=== PATIENT | female | born 1950 | race Caucasian/White ===

== ENCOUNTER 2016-10-21 10:42 | Observation (INO) | payer OTHER ==
[~2016-10-21] VITALS: Ht 162.6 cm; Wt 116.0 kg
[~2016-10-21 10:42] MED LIST: ALPHAGAN P100 DROP/5 BOTH EYES; CIPRO500 MG PO; EXFORGE 5/161 TABLET PO; FLEXERIL10 MG PO; HYDROCHLOROTH12.5 M3 PO; LANTUS 10100 UNITS/ SC; LIPITOR40 MG PO; LO-DOSE ASPIRIN81 M1 PO; METFORMIN HCL500 MG PO; METOPROLOL TART25 MG PO; NOVOLIN N100 UNITS/ SC; NOVOLIN,HU100 UNITS1 SC; PERCOCET 7.51 TABLET PO; PREDNISOLONE AC15 ML RIGHT EYE
[2016-10-21 12:04] LABS: HEMATOCRIT 36.2 % (36.0-46.0); MCHC 32.3 G/DL (30.0-36.0); MCV 83.4 FL (83-99); MEAN PLAT.VOLUME 11.1 uM^3 (9.5-12.4); PLATELET COUNT 286 K/uL (156-360); RBC DIS.WIDTH-CV 16.8 % (11.8-14.6); RBC DIS.WIDTH-SD 50.7 % (39-53); RED BLOOD COUNT 4.34 M/uL (3.80-5.20); WHITE BLOOD COUNT 9.4 K/uL (4.1-10.2)
[2016-10-21 12:14] LABS: CHLORIDE 104 mEq/L (99-109); POTASSIUM 4.1 mEq/L (3.7-5.4); SODIUM 141 mEq/L (136-147)
[2016-10-21 12:16] LABS: GLUCOSE 76 mg/dL (70-99)
[2016-10-21 12:17] LABS: ANION GAP 10 MEQ/L (2-14)
[2016-10-21 12:20] LABS: GFR ESTIMATE (CALCULATED) > 59 mL/min/; UREA NITROGEN (BUN) 26 mg/dL (9-23)
[2016-10-21 12:23] LABS: TROP-I INTERPRETATION NEGATIVE; TROPONIN-I < 0.01 ng/mL (0.0-0.30)
[2016-10-21] MEDS ORDERED: NOVOLIN,HU100 UNITS1 SC ×3 (13:56→14:32)
[2016-10-21] MEDS ORDERED: RANEXA500 MG PO (14:01)
[2016-10-21] MEDS ORDERED: HUMULIN N100 UNITS/ SC (14:01)
[2016-10-21] MEDS ORDERED: NORVASC5 MG PO (14:01)
[2016-10-21] MEDS ORDERED: ACULAR 0.5100 DROP/5 BOTH EYES (14:02)
[2016-10-21] MEDS ORDERED: CARVEDILOL3.125 MG PO (14:02)
[2016-10-21] MEDS ORDERED: LASIX40 MG PO (14:03)
[2016-10-21] MEDS ORDERED: K-DUR20 MEQ PO (14:03)
[2016-10-21] MEDS ORDERED: CYMBALTA30 MG PO (14:03)
[2016-10-21] MEDS ORDERED: PROVENTIL,2.5 MG/3 M IH (14:04)
[2016-10-21] MEDS ORDERED: ATACAND HCT PO (14:04)
[2016-10-21] MEDS ORDERED: TYLENOL ARTHRI650 MG PO (14:04)
[2016-10-21] MEDS ORDERED: COSOPT EYE DROPS5 ML LEFT EYE (14:05)
[2016-10-21] MEDS ORDERED: ALPHAGAN P100 DROP/5 LEFT EYE (14:06)
[2016-10-21] MEDS ORDERED: HUMULIN R100 UNITS/ SC (14:12)
[2016-10-21 14:22] LABS: D-DIMER ELISA 1.56 mg/L FEU (< 0.57)
[2016-10-21] MEDS ORDERED: NOVOLIN N100 UNITS/ SC (14:29)
[2016-10-21 15:38] VITALS: BP 193/80
[2016-10-21 18:01] LABS: POINT-OF-CARE METER ID UU13113831
[2016-10-21 18:50] LABS: TROP-I INTERPRETATION NEGATIVE; TROPONIN-I 0.01 ng/mL (0.0-0.30)
[2016-10-21 20:19] LABS: POINT-OF-CARE METER ID UU13113831
[2016-10-21 20:47] VITALS: BP 177/73
[2016-10-22 00:11] VITALS: BP 139/99
[2016-10-22 01:08] LABS: TROP-I INTERPRETATION NEGATIVE; TROPONIN-I < 0.01 ng/mL (0.0-0.30)
[2016-10-22 04:00] VITALS: BP 132/63
[2016-10-22 07:53] LABS: POINT-OF-CARE METER ID UU13113831
[2016-10-22 08:25] VITALS: BP 153/64
[2016-10-22] MEDS ORDERED: METOLAZONE2.5 MG PO (10:50)
== END 2016-10-22 12:45 | disposition home or self-care (01) ==
LOC: EME 10:42 → EDOF 13:58 → 5WEST 13:58 → EDOF 13:58 → 5WEST 15:30
PROVIDERS: Hospitalist
DX: R06.02 Shortness of breath (principal); R07.89 Other chest pain; E11.319 Type 2 diabetes mellitus with unspecified diabetic retinopathy without macular edema; I25.10 Atherosclerotic heart disease of native coronary artery without angina pectoris; Z95.1 Presence of aortocoronary bypass graft; I11.9 Hypertensive heart disease without heart failure; E78.5 Hyperlipidemia, unspecified; E66.01 Morbid (severe) obesity due to excess calories
CPT/HCPCS: 71020; 71275; 80048; 82948; 83880; 84484; 85027; 85379; 93005; 99202; 99281; 99285; G0378; J1650; J1815

== ENCOUNTER 2016-12-29 18:07 | Emergency (ER) | payer OTHER ==
[~2016-12-29] VITALS: Ht 162.6 cm; Wt 116.3 kg
[~2016-12-29 18:07] MED LIST changes: +ACULAR 0.5100 DROP/5 BOTH EYES; +ALPHAGAN P100 DROP/5 LEFT EYE; +ATACAND HCT PO; +CARVEDILOL3.125 MG PO; +COSOPT EYE DROPS5 ML LEFT EYE; +CYMBALTA30 MG PO; +HUMULIN N100 UNITS/ SC; +HUMULIN R100 UNITS/ SC; +K-DUR20 MEQ PO; +LASIX40 MG PO; +METOLAZONE2.5 MG PO; +NORVASC5 MG PO; +PROVENTIL,2.5 MG/3 M IH; +RANEXA500 MG PO; +TYLENOL ARTHRI650 MG PO
[2016-12-29 18:44] VITALS: BP 165/51
[2016-12-29] MEDS ORDERED: PERCOCET 5/31 TABLET PO (20:33)
== END 2016-12-29 21:58 | disposition home or self-care (01) ==
LOC: EME 18:07
DX: S46.912A Strain of unspecified muscle, fascia and tendon at shoulder and upper arm level, left arm, initial encounter (principal); S50.312A Abrasion of left elbow, initial encounter; W08.XXXA Fall from other furniture, initial encounter; Y93.E9 Activity, other interior property and clothing maintenance; M25.562 Pain in left knee; I11.0 Hypertensive heart disease with heart failure; I50.9 Heart failure, unspecified; E78.5 Hyperlipidemia, unspecified; E11.9 Type 2 diabetes mellitus without complications; Z79.4 Long term (current) use of insulin; J45.909 Unspecified asthma, uncomplicated; Z95.1 Presence of aortocoronary bypass graft
CPT/HCPCS: 73030; 73080; 73564; 99281; 99284